=== PATIENT | female | born 1960 | race Caucasian/White ===

== ENCOUNTER 2018-11-05 21:56 | Emergency (ER) | payer MEDICAID ==
[~2018-11-05] VITALS: Ht 157.5 cm; Wt 68.0 kg
[2018-11-05 21:59] VITALS: BP 142/55
--- NOTE | 2018-11-05 22:00 | NUR ---
TO BED # 07 AMBULATORY, REPORT GIVEN TO GAVIN KAYE
--- NOTE | 2018-11-05 22:04 | NUR ---
Dr. Rivas evaluating patient at bedside.
--- NOTE | 2018-11-05 22:30 | NUR ---
Pt bib family who states "she was eating at 8 O' clock this evening when she started to complain of back pain, she tried to stand up out of chair but was too weak". 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 No bruising or deformity noted. Patient placed on full monitor, 2 IV's initiated, EKG performed. EDMD at bedside performing MSE.
--- NOTE | 2018-11-05 22:40 | NUR ---
xray at bedside
[2018-11-05 22:54] LABS: BASOPHILS % (AUTO) 0.2 % (0.0-2.0); EOSINOPHILS # (AUTO) 0.2 K/uL (0-0.4); EOSINOPHILS % (AUTO) 2.1 % (0.0-4.0); HEMATOCRIT 38.5 % (36-48); HEMOGLOBIN 13.2 g/dL (12.0-16.0); LYMPHOCYTES # (AUTO) 0.9 K/uL (2.5-16.5); MEAN CORPUSCULAR HEMOGLOBIN 33 pg (27-31); MEAN CORPUSCULAR HGB CONC 34 g/dL (33-37); MONOCYTES # (AUTO) 0.5 K/uL (0.8-1.0); MONOCYTES % (AUTO) 6.9 % (1.7-9.3); NEUTROPHILS % (AUTO) 78.8 % (42.2-75.2); PLATELET COUNT (AUTO) 75 K/uL (140-450); RED BLOOD CELL COUNT(AUTO) 4.01 MIL/uL (4.20-5.40); RED CELL DISTRIBUTION WIDTH 14.2 % (11.6-13.7); WHITE BLOOD COUNT (AUTO) 7.6 K/uL (4.8-10.8)
[2018-11-05] MEDS ORDERED: MORPHINE SULFATE 4 MG/ML SYR IVP ONE (23:00)
[2018-11-05] MEDS ORDERED: ONDANSETRON 4 MG/2 ML VIAL IVP ONE (23:00)
[2018-11-05 23:12] LABS: PROTHROMBIN TIME 14.3 secs (10.8-13.4)
[2018-11-05 23:16] LABS: ANION GAP 13.3 (8-16); CARBON DIOXIDE 29.2 mmol/L (21-32); CREATININE 1.1 mg/dL (0.6-1.3); POTASSIUM 3.5 mmol/L (3.5-5.1); TOTAL BILIRUBIN 1.5 mg/dL (0.0-1.0)
[2018-11-05 23:17] LABS: ALBUMIN 3.1 g/dL (3.4-5.0)
--- NOTE | 2018-11-05 23:24 | NUR ---
CT CONTRAST CONSENT SIGNED.
--- NOTE | 2018-11-06 01:00 | NUR ---
PATIENT BP HIGH DR WEEKS AWARE. WILL FOLLOW ORDERS GIVEN.
[2018-11-06] MEDS ORDERED: LABETALOL 100 MG/20 ML VIAL IVP ONE ×6 (01:20→06:25)
[2018-11-06] MEDS ORDERED: MORPHINE SULFATE 4 MG/ML SYR IVP ONE (01:25)
--- NOTE | 2018-11-06 01:40 | NUR ---
DR WEEKS IFORMED THAT BP STILL ELEVATED. WILL GIVE MEDS ORDERED.
--- NOTE | 2018-11-06 01:55 | NUR ---
PATIENT VOMITING DR WEEKS MADE AWRE WILL GIVE ZOFRAN ORDERED.
--- NOTE | 2018-11-06 02:00 | NUR ---
CEDENO CATH INSERTED. PATIENT TOLERATED WELL. URINE CLEAR YELLOW.
[2018-11-06] MEDS ORDERED: ONDANSETRON 4 MG/2 ML VIAL ONE ×2 (02:05→02:57)
--- NOTE | 2018-11-06 02:05 | NUR ---
BP STILL ELEVATED DR WEEKS INFORMED.
--- NOTE | 2018-11-06 02:28 | NUR ---
DR WEEKS INFORMED OF BP. WILL FOLLOW ORDERS.
[2018-11-06] MEDS ORDERED: ONDANSETRON 4 MG/2 ML VIAL IVP ONE ×2 (02:50→03:50)
--- NOTE | 2018-11-06 02:50 | NUR ---
PATIENT VOMITING, DR WEEKS IFORMED. WILL GIVE ZOFRAN ORDERED.
[2018-11-06] MEDS ORDERED: ED NON STOCK ORDER 1 EA MISC IV ONE (02:55)
--- NOTE | 2018-11-06 03:30 | NUR ---
DR WEEKS INSERTED LEFT INTERNAL JUGLAR CENTRAL LINE. PATIENT TOLERATED WELL. DRESSED AND LABELED. WILL AWAIT XRAY FOR CONFIRMATION.
--- NOTE | 2018-11-06 03:40 | NUR ---
PATIENT BP AT 115/48 DR WEEKS INFORMED. WILL HOLD LABETALOL PER VERBAL ORDER.
--- NOTE | 2018-11-06 04:06 | NUR ---
VERBAL ORDER RECIEVED FROM DR WEEKS STATING THAT THE RIJ IS GOOD TO USE BASED ON XRAY RESULTS.
--- NOTE | 2018-11-06 04:38 | NUR ---
GIVEN VERBAL ORDER FROM DR WEEKS TO GIVE 40MG OF LABETALOL ORDERED.
--- NOTE | 2018-11-06 05:10 | NUR ---
0509-ESMOLOL LOADING DOSE OF 17MG PER DR WEEKS VERBAL ORDER. GIVEN AT THIS TIME. DOSE VERIFIED WITH CHARGE NURSE DASHAWN. 0510- ESMOLOL DRIP STARTED AT 25MCG/KG/MIN STARTED ORDERED BY DR WEEKS, DOSE RATE VERIFIED BY CHARGE NURSE DASHAWN. Addendum: 11/06/18 at 0519 by [facility] LOADING DOSE AND DRIP GIVEN IN [facility].
--- NOTE | 2018-11-06 05:16 | NUR ---
BP 124/52, DR WEEKS INFORMED. PER DR WEEKS ESMOLOL TITRATED UP TO 50MCG/KG/MIN, DOSE VERIFIED BY CHARGE NURSE DASHAWN.
--- NOTE | 2018-11-06 05:28 | NUR ---
ESMOLOL TITRATED UP TO 75MCG/KG/MIN PER DR. AGUIAR ORDER. CHARGE NURSE DASHAWN VERIFIED DOSE.
--- NOTE | 2018-11-06 05:44 | NUR ---
ESMOLOL TITRATED UP TO 100MCG/KG/MIN PER DR WEEKS ORDERS
--- NOTE | 2018-11-06 05:56 | NUR ---
ESMOLOL TITRATED TO 125MCG/KG/MIN. PER DR. WEEKS VERBAL ORDER. DASHAWN KAYE VERIFIED DOSE.
--- NOTE | 2018-11-06 06:12 | NUR ---
TITRATED ESMOLOL UP TO 150MCG/KG/MIN. PER DR WEEKS. DASHAWN KAYE VERIFIED DOSE.
--- NOTE | 2018-11-06 06:18 | NUR ---
FAMILY INFORMED OF TRANSFER TO [facility] IN 24 MIN BY HELICOPTER.
--- NOTE | 2018-11-06 06:32 | NUR ---
PATIENT ACTIVELY VOMITING. DR WEEKS MADE AWARE.
--- NOTE | 2018-11-06 06:49 | NUR ---
[facility] AT BEDSIDE.
[2018-11-06 07:00] VITALS: BP 134/52
--- NOTE | 2018-11-06 07:00 | NUR ---
ATTEMPTED TO GIVE REPORT TO [facility]. WAS ASKED TO CALL BACK. WILL TY AGAIN IN TEN MINUTES
--- NOTE | 2018-11-06 07:07 | NUR ---
PT TAKEN BY CESAR NICHOLAS TO [facility] 4 WEST BED 19
--- NOTE | 2018-11-06 07:20 | NUR ---
REPORT GIVEN TO KAY AT [facility]. PATIENT IN ROUTE.
== END 2018-11-06 07:07 | disposition short-term general hospital (02) ==
LOC: MED 21:56
DX: I71.01 Dissection of thoracic aorta (principal); I10 Essential (primary) hypertension
CPT/HCPCS: 36415; 36556; 51702; 71045; 71260; 74177; 80053; 82550; 82553; 83690; 84484; 85025; 85610; 85730; 86886; 86900; 86901; 93005; 96374; 96375; 96376; 99291; 99292; J2270; J2405; J3490; Q0092; Q9967